=== PATIENT | male | born 1975 | race Caucasian/White ===

== ENCOUNTER 2021-05-24 18:53 | Emergency (ER) | payer OTHER ==
[~2021-05-24] VITALS: Ht 172.7 cm; Wt 81.7 kg
[2021-05-24 19:03] VITALS: BP 136/91
[2021-05-24] MEDS ORDERED: NOHOMEMEDICATIONS (19:07)
== END 2021-05-24 20:47 | disposition left against medical advice (07) ==
LOC: ER 18:53
DX: M54.9 Dorsalgia, unspecified (principal); R50.9 Fever, unspecified; R30.9 Painful micturition, unspecified; Z53.21 Procedure and treatment not carried out due to patient leaving prior to being seen by health care provider